=== PATIENT | female | born 1990 ===

== ENCOUNTER 2020-05-02 07:46 | Emergency (ER) | payer OTHER ==
[2020-05-02 08:06] VITALS: BP 129/62
[2020-05-02 08:42] LABS: Bilirubin,Urine NEG (Negative); Blood,Urine LG (Negative); Color,Urine Yellow (Yellow); Mucus,Urine 1+ /HPF; Urobilinogen,Urine < 2.0 mg/dL (<2.0)
[2020-05-02 08:44] LABS: RBC,Urine > 182.0 /HPF (0.0-6.0); WBC,Urine > 182.0 /HPF (0.0-6.0)
[2020-05-02 08:52] LABS: HCG Qualitative,Urine Negative (Negative)
--- NOTE | 2020-05-02 10:18 | Emergency Department Report ---
ED Female HPI - General Chief complaint: Urogenital-Female Stated complaint: URINATION PAIN Source: patient Mode of arrival: Ambulatory Limitations: No Limitations - History of Present Illness MD Complaint: dysuria -: Gradual, days(s) (2) Location: suprapubic Radiation: suprapubic Severity: mild, moderate Quality: burning Consistency: constant Improves with: none Worsens with: urination Associated Symptoms: dysuria. denies: vaginal discharge, vaginal bleeding, abdominal pain, loss of appetite, hematuria, syncope, weakness - Related Data Previous Rx's Medication Instructions Recorded Last Taken Type Nitrofurantoin [place]/M-Cryst 100 mg PO Q12HR #20 capsule 05/02/20 Unknown Rx [Macrobid CAP] Phenazopyridine [Pyridium] 200 mg PO TID #9 tab 05/02/20 Unknown Rx Allergies Allergy/AdvReac Type Severity Reaction Status Date / Time No Known Allergies Allergy Unverified 08/21/14 23:48 ED Review of Systems ROS: Stated complaint: URINATION PAIN Other details as noted in HPI Comment: All other systems reviewed and negative Genitourinary: as per HPI ED Past Medical Hx - Past Medical History Previous Medical History?: No - Surgical History Past Surgical History?: No - Social History Smoking Status: Never Smoker Substance Use Type: None - Medications Home Medications: Home Medications Medication Instructions Recorded Confirmed Last Taken Type Nitrofurantoin [place]/M-Cryst 100 mg PO Q12HR #20 capsule 05/02/20 Unknown Rx [Macrobid CAP] Phenazopyridine [Pyridium] 200 mg PO TID #9 tab 05/02/20 Unknown Rx ED Physical Exam - General Limitations: No Limitations General appearance: alert, in no apparent distress - Head Head exam: Present: atraumatic, normocephalic - Eye Eye exam: Present: normal appearance - ENT ENT exam: Present: normal exam, normal orophraynx, mucous membranes moist - Neck Neck exam: Present: normal inspection - Respiratory Respiratory exam: Present: normal lung sounds bilaterally. Absent: respiratory distress - Cardiovascular Cardiovascular Exam: Present: regular rate, normal rhythm. Absent: systolic murmur, diastolic murmur, rubs, gallop - GI/Abdominal GI/Abdominal exam: Present: soft, normal bowel sounds. Absent: distended, tenderness, guarding - Extremities Exam Extremities exam: Present: normal inspection - Back Exam Back exam: Present: normal inspection. Absent: CVA tenderness (R), CVA tenderness (L) - Neurological Exam Neurological exam: Present: alert, oriented X3, CN II-XII intact - Psychiatric Psychiatric exam: Present: normal affect, normal mood. Absent: depressed, agitated, anxious, flat affect - Skin Skin exam: Present: warm, dry, intact, normal color. Absent: rash ED Course Vital Signs 05/02/20 08:02 Temperature 98.2 F Pulse Rate 55 L Respiratory 16 Rate Blood Pressure 129/62 O2 Sat by Pulse 96 Oximetry ED Medical Decision Making - Medical Decision Making This patient presents to the emergency department with symptoms consistent with acute uncomplicated cystitis. No systemic symptoms. Not septic. She is well- appearing. Low suspicion for acute pyelonephritis given the lack of fever, CVA tenderness, or systemic features. Low suspicion for for kidney stone or infected stone. Not in age range for and her history and and presentation are complicated. No no indications for labs or imaging at this time. Critical care attestation.: If time is entered above; I have spent that time in minutes in the direct care of this critically ill patient, excluding procedure time. ED Disposition Clinical Impression: UTI (urinary tract infection) Disposition: DC-01 TO HOME OR SELFCARE Is pt being admited?: No Does the pt Need Aspirin: No Condition: Stable Instructions: Urinary Tract Infection in Women (ED), Dysuria (ED), Phenazopyridine (By mouth) Prescriptions: Nitrofurantoin [place]/M-Cryst [Macrobid CAP] 100 mg PO Q12HR #20 capsule Phenazopyridine [Pyridium] 200 mg PO TID #9 tab Referrals: PRIMARY CARE, [Primary Care Provider] - 3-5 Days [facility] [Provider Group] - 3-5 Days
== END 2020-05-02 10:52 | disposition home or self-care (01) ==
LOC: ED 07:46
DX: N39.0 Urinary tract infection, site not specified (principal); Z79.899 Other long term (current) drug therapy
CPT/HCPCS: 81001; 81025

== ENCOUNTER 2020-08-11 17:12 | Emergency (ER) | payer SELFPAY ==
[2020-08-11 17:30] VITALS: BP 124/67
--- NOTE | 2020-08-11 19:27 | Emergency Department Report ---
ED ENT HPI - General Chief complaint: Sore Throat Stated complaint: POSSIBLE SORE THROAT Time Seen by Provider: 08/11/20 19:21 Source: patient Mode of arrival: Ambulatory Limitations: No Limitations - History of Present Illness Initial comments: Patient is a 30-year-old female presents emergency room with points of a sore throat that began 2 weeks ago. She has associated pain with swallowing but is still able to tolerate p.o. intake. She has associated voice hoarseness. She states that she had 2 episodes of vomiting today. She states that she also has a dry cough. She denies any fever, diarrhea, chest pain, shortness of breath, abdominal pain.. She denies any past medical history. No allergies to medications. Last menstrual cycle July 02, she states that she could possibly be but denies any abdominal pain or vaginal bleeding. - Related Data Previous Rx's Medication Instructions Recorded Last Taken Type Nitrofurantoin [place]/M-Cryst 100 mg PO Q12HR #20 capsule 05/02/20 Unknown Rx [Macrobid CAP] Phenazopyridine [Pyridium] 200 mg PO TID #9 tab 05/02/20 Unknown Rx Acetaminophen [Tylenol] 650 mg PO Q8HR PRN #20 capsule 08/11/20 Unknown Rx Nystas/Diphen/Xyl Visc/Mylanta 30 ml MM Q4H PRN #380 ml 08/11/20 Unknown Rx [Magic Mouthwash] Prednisone [predniSONE 10 mg 10 mg PO .TAPER #1 tab.ds.pk 08/11/20 Unknown Rx (6-Day Pack, 21 Tabs)] Allergies Allergy/AdvReac Type Severity Reaction Status Date / Time No Known Allergies Allergy Verified 08/08/20 12:59 ED Dental HPI - General Chief complaint: Sore Throat Stated complaint: POSSIBLE SORE THROAT Time Seen by Provider: 08/11/20 19:21 Source: patient Mode of arrival: Ambulatory Limitations: No Limitations - Related Data Previous Rx's Medication Instructions Recorded Last Taken Type Nitrofurantoin [place]/M-Cryst 100 mg PO Q12HR #20 capsule 05/02/20 Unknown Rx [Macrobid CAP] Phenazopyridine [Pyridium] 200 mg PO TID #9 tab 05/02/20 Unknown Rx Acetaminophen [Tylenol] 650 mg PO Q8HR PRN #20 capsule 08/11/20 Unknown Rx Nystas/Diphen/Xyl Visc/Mylanta 30 ml MM Q4H PRN #380 ml 08/11/20 Unknown Rx [Magic Mouthwash] Prednisone [predniSONE 10 mg 10 mg PO .TAPER #1 tab.ds.pk 08/11/20 Unknown Rx (6-Day Pack, 21 Tabs)] Allergies Allergy/AdvReac Type Severity Reaction Status Date / Time No Known Allergies Allergy Verified 08/08/20 12:59 ED Review of Systems ROS: Stated complaint: POSSIBLE SORE THROAT Other details as noted in HPI Comment: All other systems reviewed and negative ED Past Medical Hx - Past Medical History Previous Medical History?: No - Surgical History Past Surgical History?: No - Social History Smoking Status: Current Every Day Smoker Substance Use Type: Alcohol, Marijuana - Medications Home Medications: Home Medications Medication Instructions Recorded Confirmed Last Taken Type Nitrofurantoin [place]/M-Cryst 100 mg PO Q12HR #20 capsule 05/02/20 Unknown Rx [Macrobid CAP] Phenazopyridine [Pyridium] 200 mg PO TID #9 tab 05/02/20 Unknown Rx Acetaminophen [Tylenol] 650 mg PO Q8HR PRN #20 capsule 08/11/20 Unknown Rx Nystas/Diphen/Xyl Visc/Mylanta 30 ml MM Q4H PRN #380 ml 08/11/20 Unknown Rx [Magic Mouthwash] Prednisone [predniSONE 10 mg 10 mg PO .TAPER #1 tab.ds.pk 08/11/20 Unknown Rx (6-Day Pack, 21 Tabs)] ED Physical Exam - General Limitations: No Limitations General appearance: alert, in no apparent distress - Head Head exam: Present: atraumatic, normocephalic - Eye Eye exam: Present: normal appearance - ENT ENT exam: Present: normal orophraynx, mucous membranes moist, TM's normal bilaterally, normal external ear exam, other (no tonsillar hypertrophy or exudates, uvula is midline no uvular edema or deviation, airway is intact, no trismus, no tongue elevation, voice is hoarse but not muffled ) - Neck Neck exam: Present: full ROM. Absent: meningismus, lymphadenopathy - Respiratory Respiratory exam: Present: normal lung sounds bilaterally. Absent: respiratory distress, wheezes, rales, rhonchi, stridor, chest wall tenderness, accessory muscle use, decreased breath sounds, prolonged expiratory - Cardiovascular Cardiovascular Exam: Present: regular rate, normal rhythm, normal heart sounds. Absent: systolic murmur, diastolic murmur, rubs, gallop - Neurological Exam Neurological exam: Present: alert, oriented X3 - Psychiatric Psychiatric exam: Present: normal affect, normal mood - Skin Skin exam: Present: warm, dry, intact ED Course Vital Signs 08/11/20 17:29 Temperature 98.5 F Pulse Rate 74 Respiratory 18 Rate Blood Pressure 124/67 [Right] O2 Sat by Pulse 100 Oximetry ED Medical Decision Making - Medical Decision Making Patient is a 30-year-old female presents emergency room with points of a sore throat that began 2 weeks ago. She has associated pain with swallowing but is still able to tolerate p.o. intake. She has associated voice hoarseness. She states that she had 2 episodes of vomiting today. She states that she also has a dry cough. She denies any fever, diarrhea, chest pain, shortness of breath, abdominal pain.. She denies any past medical history. No allergies to medications. Last menstrual cycle July 02, she states that she could possibly be but denies any abdominal pain or vaginal bleeding. vitals are normal. on exam: no tonsillar hypertrophy or exudates, uvula is midline no uvular edema or deviation, airway is intact, no trismus, no tongue elevation, voice is hoarse but not muffled. Examination appears most consistent with laryngitis. She has no clinical signs of pharyngitis, tonsillitis, peritonsillar abscess. Patient given prescription for Tylenol, Magic mouthwash, prednisone. Advised patient Please use medication as prescribed. Increase your water intake. Please use throat lozenges and [id number] throat spray. Please drink warm tea and eat warm soup broth. Please rest your voice. Follow-up with your primary care doctor. Return to emergency room for any new or worsening symptoms. advised pt If you are concerned for , please follow-up with [facility], the health department, or resource clinic. If began having abdominal pain or vaginal bleeding please return to the emergency room. Critical care attestation.: If time is entered above; I have spent that time in minutes in the direct care of this critically ill patient, excluding procedure time. ED Disposition Clinical Impression: Laryngitis Disposition: TO HOME OR SELFCARE Is pt being admited?: No Does the pt Need Aspirin: No Condition: Stable Instructions: Laryngitis, [id number] Additional Instructions: Please use medication as prescribed. Increase your water intake. Please use throat lozenges and [id number] throat spray. Please drink warm tea and eat warm soup broth. Please rest your voice. Follow-up with your primary care doctor. Return to emergency room for any new or worsening symptoms. If you are concerned for , please follow-up with [facility], the health department, or resource clinic. If began having abdominal pain or vaginal bleeding please return to the emergency room. Prescriptions: Nystas/Diphen/Xyl Visc/Mylanta [Magic Mouthwash] 30 ml MM Q4H PRN #380 ml PRN Reason: sore throat Prednisone [predniSONE 10 mg (6-Day Pack, 21 Tabs)] 10 mg PO .TAPER #1 tab.ds.pk Acetaminophen [Tylenol] 650 mg PO Q8HR PRN #20 capsule PRN Reason: pain Referrals: PRIMARY CARE, [Primary Care Provider] - 2-3 Days BHAVIN TRUJILLO MD [Staff Physician] - 2-3 Days [facility] [Provider Group] - 2-3 Days [facility], [LAB/CONTRACT] - 2-3 Days Time of Disposition: 19:24 Print Language: ARMENIAN
== END 2020-08-11 20:00 | disposition home or self-care (01) ==
LOC: ED 17:12
DX: J04.0 Acute laryngitis (principal); F17.200 Nicotine dependence, unspecified, uncomplicated; F12.10 Cannabis abuse, uncomplicated; Z79.899 Other long term (current) drug therapy
CPT/HCPCS: 99281